=== PATIENT | male | born 1985 | race African-American/Black ===

== ENCOUNTER 2020-09-25 20:09 | Emergency (ER) | payer OTHER ==
[~2020-09-25] VITALS: Ht 182.9 cm; Wt 81.7 kg
[2020-09-25] MEDS ORDERED: NAPROSYN500 MG PO (21:51)
[2020-09-25 22:18] VITALS: BP 150/84
== END 2020-09-25 22:19 | disposition home or self-care (01) ==
LOC: ER 20:09
DX: S60.222A Contusion of left hand, initial encounter (principal); X58.XXXA Exposure to other specified factors, initial encounter; Y93.89 Activity, other specified; Y92.89 Other specified places as the place of occurrence of the external cause; Y99.8 Other external cause status